=== PATIENT | female | born 1960 | race Caucasian/White ===

== ENCOUNTER 2018-08-14 07:00 | Outpatient (RCR) | payer OTHER ==
[2018-08-27] MEDS ORDERED: [UNRECOGNIZED DRUG - REMARK] (13:03)
[2018-08-27] MEDS ORDERED: TOPAMAX15 MG (13:03)
[2018-08-27] MEDS ORDERED: NAPROXEN250 MG PO (13:03)
[2018-08-27] MEDS ORDERED: HORMONES (13:03)
== END 2018-08-26 ==
LOC: PT 07:00
PROVIDERS: ATTEND Specialist
DX: M75.42 Impingement syndrome of left shoulder (principal); M25.512 Pain in left shoulder; M25.612 Stiffness of left shoulder, not elsewhere classified; M62.81 Muscle weakness (generalized)

== ENCOUNTER → 2018-08-25 | Outpatient (CLI) | payer OTHER ==
[~2018-08-25] MED LIST: HORMONES; NAPROXEN250 MG PO; TOPAMAX15 MG; [UNRECOGNIZED DRUG - REMARK]
--- NOTE | 2018-08-25 10:10 | Diagnostic Imaging Report ---
MRI of the left shoulder without contrast. History: Shoulder pain. Adhesive capsulitis. Decreased range of motion. Comparison: None Technique: Coronal PD FS, sagital PD FS, and axial PD and PD FS. Findings: Rotator cuff: There is rotator cuff tendinosis without tear, muscle atrophy or retraction. Osseous acromion complex: There is a type II acromion with mild lateral downsloping. There is mild degenerative arthrosis of the acromioclavicular joint. There is mild subacromial/subdeltoid bursal fluid. Glenohumeral joint: There is degenerative type tearing of the labrum with remodeling of the glenohumeral joint. There is scarring and thickening in the axillary pouch with increased signal intensity which could be due to adhesive capsulitis or a capsular sprain. There is a small effusion and mild synovitis in the rotator interval and subcoracoid space. Biceps tendon: The biceps tendon is intact. Other findings: Negative for muscle denervation or osseous fracture. 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 There is scarring and thickening in the axillary pouch with increased signal intensity which could be due to adhesive capsulitis or a capsular sprain. Rotator cuff tendinosis without tear, muscle atrophy or retraction. Signed by: Dr. Ranjit Garcia M.D. on 08/25/2018 10:07 AM
== END ==
LOC: MRI 09:06
PROVIDERS: ATTEND Specialist
DX: M75.02 Adhesive capsulitis of left shoulder (principal)

== ENCOUNTER → 2018-09-01 | Day surgery (SDC) | payer OTHER ==
[~2018-09-01] MED LIST changes: +BUPIVACAINE HCL 0.5% INJ 30 ML VIAL INJ ONE; +EPINEPHRINE HCL INJ 1 MG/ML AMP ONE; +FENTANYL CITRATE/PF 100MCG/2 ML INJ ONE; +LIDOCAINE HCL 2% LOCAL INJ 5 ML SDV VIAL INJ ONE; +MIDAZOLAM HCL 2 MG/2 ML VIAL ONE; +PROPOFOL IV EMULSION 10 MG/ML 20 ML VIAL ONE
--- OUTSIDE RECORDS SUMMARY | 2018-09-01 08:52 | XMS REPORT ---
[facility] Address Unknown Phone Unavailable Care Team Providers Care Database Marketing Specialist Name Role Phone NIGEL POST Unavailable Unavailable Problems This patient has no known problems. Allergies, Adverse Reactions, Alerts This patient has no known allergies or adverse reactions. Medications This patient has no known medications. Results Test Description Test Time Test Comments Text Results Atomic Results Result Comments MRI SHOULDER LEFT WO 2018-08-25 10:02:00 [place] [id number] Patient Name: XAVI JOHNSON MR #: [id number] : 1960 Age/Sex: 58/F Req #: [id number] [facility] Physician: Ordered by: NIGEL POST MD Report #: [id number] Location: MRI Room/Bed: Procedure: [id number] MRI/MRI SHOULDER LEFT WO Exam Date: Exam Time: REPORT STATUS: Signed MRI of the left shoulder without contrast. History: Shoulder pain. Adhesive capsulitis. Decreased range of motion. Comparison: None Technique: Coronal PD FS, sagital PD FS, and axial PD and PD FS. Findings: Rotator cuff: There is rotator cuff tendinosis without tear, muscle atrophy or retraction. Osseous acromion complex: There is a type II acromion with mild lateral downsloping. There is mild degenerative arthrosis of the acromioclavicular joint. There is mild subacromial/subdeltoid bursal fluid. Glenohumeral joint: There is degenerative type tearing of the labrum with remodeling of the glenohumeral joint. There is scarring and thickening in the axillary pouch with increased signal intensity which could be due to adhesive capsulitis or a capsular sprain. There is a small effusion and mild synovitis in the rotator interval and subcoracoid space. Biceps tendon: The biceps tendon is intact. Other findings: Negative for muscle denervation or osseous fracture. 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 There is scarring and thickening in the axillary pouch with increased signal intensity which could be due to adhesive capsulitis or a capsular sprain. Rotator cuff tendinosis without tear, muscle atrophy or retraction. Signed by: Dr. Ranjit Garcia M.D. on 08/25/2018 10:07 AM Dictated By: RANJIT GARCIA MD, MD Electronically [place] By: RANJIT GARCIA MD, MD on 08/25/18 1007 Transcribed By: TU on 08/25/18 1007 COPY TO: NIGEL POST MD
--- OUTSIDE RECORDS SUMMARY | 2018-09-01 08:52 | XMS REPORT | Continuity of Care Document ---
Author Author [facility] Interface Address Unknown Phone Unavailable Problems Problem Status Onset Date Classification Date Reported Comments Source 348.2 - BENIGN INTRACRA 377.01 - PAPILLE Active 03/11/2014 [facility] [place] Medications Medication Details Route Status Patient Instructions Ordering Provider Order Date Source Allergies, Adverse Reactions, Alerts Substance Category Reaction Severity Reaction type Status Date Reported Comments Source Immunizations Immunization Date Given Site Status Last Updated Comments Source Results Order Name Results Value Reference Range Date Interpretation Comments Source Vital Signs Vital Sign Value Date Comments Source Encounters Location Location Details Encounter Type Encounter Number Reason For Visit Attending Provider ADM Date DC Date Status Source Procedures Procedure Code Date Perfomer Comments Source
[2018-09-01 12:25] VITALS: BP 112/80
--- NOTE | 2018-09-01 13:48 | Operative Report ---
DATE OF PROCEDURE: September 01, 2018 AVIATION ELECTRICIAN: Simon Sawant PA-C The patient was brought to the operating room for induction of anesthesia. Throughout this case, my PA's assistance was necessary for retraction of soft tissue and positioning of the extremity. This allows for efficient and technically successful execution of the operation and is considered medically necessary. PREOPERATIVE DIAGNOSIS: Left shoulder adhesive capsulitis. POSTOPERATIVE DIAGNOSIS: Left shoulder adhesive capsulitis. PROCEDURE: Left shoulder manipulation under anesthesia. INDICATIONS: The patient is a 58-year-old woman who has clear evidence of adhesive capsulitis in her left shoulder. She has failed to make any progress with physical therapy. She is complaining of incapacitating pain. We have discussed the options and plan on a manipulation under anesthesia. The risks and benefits were explained. She stated she understood and wished to proceed. DESCRIPTION OF PROCEDURE: The patient was brought to the operating room and given a MAC anesthetic. She received an interscalene block in the holding area. When she was fully anesthetized, her left shoulder was manipulated. The shoulder was gently brought up into 90 degrees where there was obvious stricture. This was carefully manipulated up to 180 degrees. There was palpable release of inferior scar tissue. I subsequently could easily get the shoulder up to 180 degrees of elevation. The shoulder was then dropped down to her side. She had approximately 20 degrees of external rotation before the shoulder became resistance. This was also gently manipulated. There was another palpable release. She was then able to externally rotate her arm to approximately 70 degrees. She was transported to the recovery room in stable condition. There was no blood loss and all needle and sponge counts were correct. Job#: [id number]
== END | disposition home or self-care (01) ==
LOC: OR 08:50
PROVIDERS: ATTEND Specialist
DX: M75.02 Adhesive capsulitis of left shoulder (principal); M54.9 Dorsalgia, unspecified; G47.33 Obstructive sleep apnea (adult) (pediatric); R00.1 Bradycardia, unspecified; Z88.6 Allergy status to analgesic agent; Z01.810 Encounter for preprocedural cardiovascular examination; Z87.891 Personal history of nicotine dependence
CPT/HCPCS: 23700; 93005; J0171; J2001; J2250; J2704